=== PATIENT | male | born 1965 | race Caucasian/White ===

== ENCOUNTER 2020-04-10 05:27 | Day surgery (SDC) | payer BC ==
[2020-04-03 11:43] LABS: BASOPHILS # (AUTO) 0.1 X10'3 (0-0.2); BASOPHILS % (AUTO) 1.1 % (0-1); EOSINOPHILS # (AUTO) 0.7 X10'3 (0-0.9); EOSINOPHILS % (AUTO) 8.8 % (0-6); LYMPHOCYTES % (AUTO) 25.6 % (21-51); MEAN CORPUSCULAR HEMOGLOBIN 32.1 PG (27.0-31.0); MEAN CORPUSCULAR HGB CONC 33.6 g/dL (33.0-36.5); MEAN CORPUSCULAR VOLUME 95.5 FL (78-98); MEAN PLATELET VOLUME 7.5 FL (7.4-10.4); MONOCYTES # (AUTO) 0.7 X10'3 (0-0.9); MONOCYTES % (AUTO) 8.8 % (2-12); NEUTROPHILS # (AUTO) 4.3 X10'3 (1.8-7.7); NEUTROPHILS % (AUTO) 55.7 % (42-75); PRE OP HEMATOCRIT 42.7 % (42.0-52.0); PRE OP HEMOGLOBIN 14.3 g/dL (14.0-17.9); PRE OP PLATELET COUNT 342 X10'3 (140-440); RED BLOOD COUNT 4.47 X10'6 (4.70-6.10); RED CELL DISTRIBUTION WIDTH 13.6 % (11.5-14.5)
[2020-04-03 11:57] LABS: ALBUMIN 4.2 G/DL (3.4-5.0); ALBUMIN/GLOBULIN RATIO 1.1 (1.1-1.5); ALKALINE PHOSPHATASE 72 IU/L (46-116); BLOOD UREA NITROGEN 15 MG/DL (7-18); BUN/CREATININE RATIO 15.6 (5.4-32.0); CALCIUM 8.9 MG/DL (8.5-10.1); CHLORIDE 100 MMOL/L (99-107); CREATININE 0.96 MG/DL (0.60-1.10); PRE OP ALT 31 U/L (30-65); PRE OP ANION GAP 9 (8-16); PRE OP AST 13 U/L (10-37); PRE OP BILIRUB, TOTAL 0.5 MG/DL (0.0-1.0); PRE OP GLUCOSE 116 MG/DL (70-104); PRE OP POTASSIUM 4.3 MMOL/L (3.4-5.1); PRE OP SODIUM 138 MMOL/L (135-145); TOTAL CARBON DIOXIDE 28.7 MMOL/L (24-32); TOTAL PROTEIN 7.9 G/DL (6.4-8.2); eGFR 81 ML/MIN
[2020-04-10] VITALS (8 sets, daily range): BP systolic 129–162; BP diastolic 89–105
[~2020-04-10] VITALS: Ht 175.3 cm; Wt 99.7 kg
[~2020-04-10 05:27] MED LIST: LISI-600 PO; ringers solution, lacted 1,000 ML IV SCH
[2020-04-10] MEDS ORDERED: ceFAZolin 2gm in dextrose, iso 50 ML IV ONE (05:30)
[2020-04-10] MEDS ORDERED: famotidine 20mg tablet PO ONE (05:30)
[2020-04-10] MEDS ORDERED: LIDOcaine 1% 30ml preserv. free vial ONE (06:44)
[2020-04-10] MEDS ORDERED: BUPIVAcaine/PF 2.5 mg/ml (0.25%) 30ml vial ONE (06:44)
[2020-04-10] MEDS ORDERED: meperidine/PF 25mg/ml syringe IV PRN ×3 (07:30)
[2020-04-10] MEDS ORDERED: proCHLORperazine 10 MG/2 ml inj IV PRN (07:30)
[2020-04-10] MEDS ORDERED: hydrALAZINE 20mg/ml inj. IV PRN (07:30)
[2020-04-10] MEDS ORDERED: morphine 2 MG/ML inj. syringe IV PRN (07:30)
[2020-04-10] MEDS ORDERED: morphine 4 MG/ML inj SYRINge IV PRN (07:30)
[2020-04-10] MEDS ORDERED: ondansetron/PF 4mg/2ml inj IV PRN (07:30)
[2020-04-10] MEDS ORDERED: acetaminophen 1,000mg/100ml IV 100 ML IV PRN (07:30)
[2020-04-10] MEDS ORDERED: labetalol 20mg/4ml (5mg/ml) syringe IV PRN (07:30)
[2020-04-10] MEDS ORDERED: ringers solution, lacted 1,000 ML IV SCH (07:30)
[2020-04-10] MEDS ORDERED: propofol 10mg/ml 20ml vial IV ONE (07:32)
[2020-04-10] MEDS ORDERED: sevoflurane 250ml liquid IH ONE (07:32)
[2020-04-10] MEDS ORDERED: midazolam 2 mg/2 ml injection ONE (07:37)
[2020-04-10] MEDS ORDERED: fentaNYL /PF 50mcg/ml 5ml ampule ONE (07:37)
[2020-04-10] MEDS ORDERED: propofol inj 20 ML IV ONE (07:57)
[2020-04-10] MEDS ORDERED: ondansetron/PF 4mg/2ml inj ONE (07:57)
[2020-04-10] MEDS ORDERED: rocuronium 10mg/ml inj IV ONE (07:57)
[2020-04-10] MEDS ORDERED: dexamethasone sod phosphate 4mg/ml inj. ONE (07:57)
[2020-04-10] MEDS ORDERED: LIDOcaine 2% (20mg/ml) 5ml vial ONE (07:57)
[2020-04-10] MEDS ORDERED: LIDOcaine 2% 5ml jelly ONE (07:59)
[2020-04-10] MEDS ORDERED: glycopyrrolate 0.2mg/ml inj ONE (09:08)
[2020-04-10] MEDS ORDERED: neostigmine methylsulfate 1 MG/ML 10ml vial ONE (09:08)
--- NOTE | 2020-04-10 09:19 | NUR ---
Received from OR via , accompanied by Anesthesiologist DR FRANCISCO and report given by Anesthesiolgist. AWAKENS TO VOICE. VITALS STABLE. DRESSINGS DI. MARIO PAIN. ABD SOFT.
[2020-04-10] MEDS ORDERED: oxyCODONE/APAP 5-325mg tablet PO PRN (09:40)
[2020-04-10] MEDS ORDERED: acetaminophen 1,000mg/100ml IV 100 ML IV ONE (09:40)
[2020-04-10] MEDS ORDERED: oxyCODONE/APAP 10/325mg tablet PO PRN (09:40)
--- NOTE | 2020-04-10 10:29 | NUR ---
AWAKE AND ORIENTED. VITALS STABLE. DRESSINGS DI. STATES ONLY MIN DISCOMFORT. HOME WITH HIS AT THIS TIME.
== END 2020-04-10 10:29 | disposition home or self-care (01) ==
LOC: PAS 05:27
PROVIDERS: ATTEND Surgery
DX: K40.90 Unilateral inguinal hernia, without obstruction or gangrene, not specified as recurrent (principal); Z98.890 Other specified postprocedural states; I10 Essential (primary) hypertension; Z72.89 Other problems related to lifestyle; Z79.899 Other long term (current) drug therapy; Z86.16 Personal history of COVID-19
CPT/HCPCS: 36415; 49650; 80053; 82948; 85025; 93005; C1781; J0131; J1100; J2001; J2175; J2250; J2405; J2704; J2710; J3010; J3490; S2900; A4215; A4618; J7120